=== PATIENT | female | born 1980 | race Caucasian/White ===

== ENCOUNTER 2021-02-13 09:24 | Emergency (ER) | payer BC ==
[~2021-02-13] VITALS: Ht 162.6 cm; Wt 108.9 kg
[2021-02-13 10:39] LABS: HEMOGLOBIN 13.2 gm/dl (12.3-15.3); RED BLOOD COUNT 4.32 M/UL (4.00-5.10); WHITE BLOOD COUNT 3.2 K/UL (4.5-11.0)
[2021-02-13 11:07] LABS: BUN/CREATININE RATIO 15 (0-10)
== END 2021-02-13 14:00 | disposition home or self-care (01) ==
LOC: ER1 09:24
PROVIDERS: Physician Assistant
DX: U07.1 COVID-19 (principal); J12.82 Pneumonia due to coronavirus disease 2019
CPT/HCPCS: 71045; 80053; 83605; 85025; 87040; 99283; J7030; M0243